=== PATIENT | male | born 1965 | race Caucasian/White ===

== ENCOUNTER 2018-02-20 11:21 | Emergency (ER) | payer SELFPAY ==
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
[2018-02-20 11:59] LABS: PLATELET COUNT 291 10^3/uL (150-400)
[2018-02-20 19:32] VITALS: BP 160/102
[2018-02-20] MEDS ORDERED: CHLORDIAZEPOXIDE 25MG PREPK#6 BTL TAKEHOME ONE (19:37)
== END 2018-02-20 19:42 | disposition home or self-care (01) ==
LOC: EDBD 11:21
DX: F10.929 Alcohol use, unspecified with intoxication, unspecified (principal)
CPT/HCPCS: G0480